=== PATIENT | male | born 1965 | race Caucasian/White ===

== ENCOUNTER 2017-01-22 13:18 | Inpatient (IN) | payer OTHER ==
[~2017-01-22] VITALS: Ht 182.9 cm; Wt 91.0 kg
[~2017-01-22 13:18] MED LIST: ALAVERT10 MG PO; ALLERGY10 MG PO; AMOX TR-K CLV1 EAC4 PO; ATARAX,VISTARIL50 MG PO; COGENTIN0.5 MG PO; COGENTIN1 MG PO; DEPAKOTE ER500 MG PO; DEPAKOTE500 MG PO; FLONASE16 G1 BOTH NARES; FLONASE16 GM NS; FLUPHENAZINE HC10 MG PO; KLONOPIN1 MG PO; LEVOFLOXACIN750 MG PO; LORATADINE10 M2 PO; OMEPRAZOLE20 MG PO; PRILOSEC20 MG PO; PROLIXIN10 MG PO; SEROQUEL300 MG PO; SEROQUEL400 MG PO; TRAZODONE HCL50 MG PO; TYLENOL REGULA325 MG PO; ZOLOFT50 MG PO; ZYPREXA10 MG PO; ZYPREXA20 MG PO
[2017-01-22 13:49] LABS: ADD MIUA? NO; BILIRUBIN NEGATIVE; BLOOD NEGATIVE; COLOR COLORLESS ((YELLOW)); GLUCOSE (STRIP) NEGATIVE; KETONES NEGATIVE; LEUKOCYTES NEGATIVE; NITRITE NEGATIVE; PROTEIN (STRIP) NEGATIVE; SPECIFIC GRAVITY 1.003 (1.000-1.030); UROBILINOGEN 0.2 MG/DL (0.2-1.0)
[2017-01-22 14:03] LABS: AMPHETAMINE NEGATIVE (500 ng/mL); BARBITURATES NEGATIVE (200 ng/mL); BENZODIAZEPINES NEGATIVE (150 ng/mL); COCAINE NEGATIVE (150 ng/mL); INTERNAL CONTROLS VALID? YES; METHADONE NEGATIVE (200 ng/mL); METHAMPHETAMINE NEGATIVE (500 ng/mL); OPIATES (MORPHINE) NEGATIVE (100 ng/mL); OXYCODONE NEGATIVE (100 ng/mL); PHENCYCLIDINE NEGATIVE (25 ng/mL); PROPOXYPHENE NEGATIVE (300 ng/mL); THC CANNABINOIDS NEGATIVE (50 ng/mL); TRICYCLIC ANTIDEPRESSANTS PRESUMPTIVE POSITIVE (300 ng/mL)
[2017-01-22 15:14] LABS: HEMATOCRIT 37.2 % (38.0-50.0); MCH 29.9 PG (29.0-34.0); MCHC 34.1 G/DL (30.0-36.0); MCV 87.5 FL (86-99); MEAN PLAT.VOLUME 10.5 uM^3 (9.0-12.4); PLATELET COUNT 238 K/uL (156-360); RBC DIS.WIDTH-CV 12.9 % (11.8-14.6); RBC DIS.WIDTH-SD 41.5 % (39-53); RED BLOOD COUNT 4.25 M/uL (4.00-5.50); WHITE BLOOD COUNT 5.7 K/uL (4.1-10.2)
[2017-01-22 15:28] LABS: CHLORIDE 101 mEq/L (99-109); POTASSIUM 3.8 mEq/L (3.7-5.4); SODIUM 134 mEq/L (136-147)
[2017-01-22 15:31] LABS: GLUCOSE 90 mg/dL (70-99)
[2017-01-22 15:32] LABS: ANION GAP 10 MEQ/L (2-14); TOTAL BILIRUBIN 0.2 mg/dL (0.0-1.0)
[2017-01-22 15:33] LABS: SERUM ETHYL ALCOHOL < 10 mg/dL
[2017-01-22 15:34] LABS: ALKALINE PHOSPHATASE 67 IU/L (3-129); GFR ESTIMATE (CALCULATED) > 59 mL/min/
[2017-01-22 15:35] LABS: UREA NITROGEN (BUN) 3 mg/dL (9-23)
[2017-01-22 23:00] VITALS: BP 120/72
[2017-01-22 23:01] VITALS: BP 120/72
[2017-01-23 07:44] VITALS: BP 99/60
[2017-01-23 11:32] VITALS: BP 126/63
[2017-01-23 15:15] VITALS: BP 133/63
[2017-01-24 09:15] VITALS: BP 121/61
[2017-01-24 15:30] VITALS: BP 123/61
[2017-01-25 08:51] VITALS: BP 113/64
[2017-01-25 15:29] VITALS: BP 117/59
[2017-01-26 08:07] VITALS: BP 98/54
[2017-01-26 16:06] VITALS: BP 121/69
[2017-01-27 07:37] VITALS: BP 113/56
[2017-01-27 15:24] VITALS: BP 109/58
[2017-01-28 08:05] VITALS: BP 93/57
[2017-01-28] MEDS ORDERED: SERTRALINE HCL100 MG PO (09:49)
== END 2017-01-28 14:32 | disposition home or self-care (01) | DRG 885 ==
LOC: EME 13:18 → EDOF 20:58 → 1WEST 20:58
PROVIDERS: Emergency Medicine
DX: F25.0 Schizoaffective disorder, bipolar type (principal); R45.1 Restlessness and agitation; R45.850 Homicidal ideations; F79 Unspecified intellectual disabilities
CPT/HCPCS: 80053; 81003; 85027; 90837; 97150 GO; 97165 GO; 99281; 99285; G0480